=== PATIENT | male | born 1980 | race American Indian/Alaskan Native ===

== ENCOUNTER 2018-11-11 05:27 | Emergency (ER) | payer OTHER ==
[2018-11-11 06:43] LABS: Eosinophils # (Auto) 0.1 K/mm3 (0.0-0.4); Eosinophils % (Auto) 2.2 % (0.0-4.3); Hematocrit 42.7 % (35.5-45.6); Hemoglobin 14.7 gm/dl (11.8-15.2); Lymphocytes # (Auto) 1.7 K/mm3 (1.2-5.4); Lymphocytes % (Auto) 37.8 % (13.4-35.0); Mean Corpuscular HGB Conc 35 % (32-34); Mean Corpuscular Volume 91 fl (84-94); Monocytes # (Auto) 0.4 K/mm3 (0.0-0.8); Monocytes % (Auto) 9.5 % (0.0-7.3); Platelet Count 215 K/mm3 (140-440); Red Blood Count 4.67 M/mm3 (3.65-5.03); Red Cell Distribution Width 13.5 % (13.2-15.2)
--- NOTE | 2018-11-11 07:11 | Emergency Department Report ---
ED General Adult HPI - General Chief complaint: Dizziness Stated complaint: DIZZINESS Time Seen by Provider: 11/11/18 06:54 Source: patient Mode of arrival: Ambulatory Limitations: No Limitations - History of Present Illness Initial comments: 38-year-old male reports a feeling of generalized malaise and vague dizziness for the past week. 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 He states his dizziness is worse when he is up and about. He states it improves when he sits down and rests. He did not pass out. He did not feel like he was going to. He does not report headache. He does not report any focal neurological change. He states he did an Internet search and came up with the diagnosis of hypoglycemia. Does not report a past medical history. He is not taking any routine medications. -: Gradual, week(s) Radiation: other (no complaint of pain) Quality: other Consistency: now resolved Improves with: other (sitting down) Worsens with: other (activity) Associated Symptoms: denies other symptoms Treatments Prior to Arrival: none - Related Data Allergies Allergy/AdvReac Type Severity Reaction Status Date / Time No Known Allergies Allergy Unverified 11/11/18 05:41 ED Review of Systems ROS: Stated complaint: DIZZINESS Other details as noted in HPI Constitutional: malaise. denies: chills, fever Eyes: denies: eye pain, eye discharge, vision change ENT: denies: ear pain, throat pain Respiratory: denies: cough, shortness of breath, wheezing Cardiovascular: other (dizziness). denies: chest pain, palpitations Endocrine: no symptoms reported Gastrointestinal: denies: abdominal pain, nausea, diarrhea Genitourinary: denies: urgency, dysuria Musculoskeletal: denies: back pain, joint swelling, arthralgia Skin: denies: rash, lesions Neurological: denies: headache, weakness, paresthesias Psychiatric: denies: anxiety, depression Hematological/Lymphatic: denies: easy bleeding, easy bruising ED Past Medical Hx - Past Medical History Previous Medical History?: No - Surgical History Past Surgical History?: No - Social History Smoking Status: Never Smoker ED Physical Exam - General Limitations: No Limitations General appearance: alert, in no apparent distress - Head Head exam: Present: atraumatic, normocephalic - Eye Eye exam: Present: normal appearance, PERRL, EOMI. Absent: scleral icterus, nystagmus - ENT ENT exam: Present: mucous membranes moist - Neck Neck exam: Present: normal inspection. Absent: tenderness, meningismus - Respiratory Respiratory exam: Present: normal lung sounds bilaterally. Absent: respiratory distress - Cardiovascular Cardiovascular Exam: Present: regular rate, normal rhythm. Absent: systolic murmur, diastolic murmur, rubs, gallop - GI/Abdominal GI/Abdominal exam: Present: soft, normal bowel sounds. Absent: distended, tenderness, guarding, rebound, rigid - Rectal Rectal exam: Present: deferred - Extremities Exam Extremities exam: Present: normal inspection - Back Exam Back exam: Present: normal inspection - Neurological Exam Neurological exam: Present: alert, oriented X3, CN II-XII intact. Absent: motor sensory deficit - Psychiatric Psychiatric exam: Present: normal affect, normal mood - Skin Skin exam: Present: warm, dry, intact, normal color. Absent: rash ED Course Vital Signs 11/11/18 05:44 Temperature 98.1 F Pulse Rate 66 Respiratory 20 Rate Blood Pressure 136/93 O2 Sat by Pulse 96 Oximetry - Reevaluation(s) Reevaluation #1: Blood pressure was repeated by me in the room. I obtained two hypertensive readings. While was sitting in another standing all about 150/105. Believe the patient does have essential hypertension and that is the likely cause of his symptoms. Follow-up instructions have been explained. He is referred to primary care. 11/11/18 07:10 ED Medical Decision Making - Lab Data Result diagrams: 11/11/18 06:06 11/11/18 06:06 Laboratory Results - last 24 hr 11/11/18 06:06 WBC 4.6 RBC 4.67 Hgb 14.7 Hct 42.7 MCV 91 MCH 32 MCHC 35 H RDW 13.5 Plt Count 215 Lymph % (Auto) 37.8 H [place] % (Auto) 9.5 H Eos % (Auto) 2.2 Baso % (Auto) 1.0 Lymph # 1.7 [place] # 0.4 Eos # 0.1 Baso # 0.0 Seg Neutrophils % 49.5 Seg Neutrophils # 2.3 Laboratory Results - last 24 hr 11/11/18 06:06 WBC 4.6 RBC 4.67 Hgb 14.7 Hct 42.7 MCV 91 MCH 32 MCHC 35 H RDW 13.5 Plt Count 215 Lymph % (Auto) 37.8 H [place] % (Auto) 9.5 H Eos % (Auto) 2.2 Baso % (Auto) 1.0 Lymph # 1.7 [place] # 0.4 Eos # 0.1 Baso # 0.0 Seg Neutrophils % 49.5 Seg Neutrophils # 2.3 Critical care attestation.: If time is entered above; I have spent that time in minutes in the direct care of this critically ill patient, excluding procedure time. ED Disposition Clinical Impression: Essential hypertension, Dizziness Disposition: DC-01 TO HOME OR SELFCARE Is pt being admited?: No Does the pt Need Aspirin: No Condition: Stable Instructions: Hypertension (ED) Additional Instructions: Further evaluation and treatment with a primary care physician is recommended. (Rx 4 year-old blood pressure. Return to the emergency department any acute change or problem. Referrals: LYN ALVAREZ MD [Primary Care Provider] - 3-5 Days
[2018-11-11 07:49] LABS: BUN/Creatinine Ratio 16; Blood Urea Nitrogen 13 mg/dL (9-20); Calcium 9.1 mg/dL (8.4-10.2); Hemolysis Index 10
[2018-11-11 08:26] VITALS: BP 148/82
== END 2018-11-11 08:27 | disposition home or self-care (01) ==
LOC: ED 05:27
DX: I10 Essential (primary) hypertension (principal); R42 Dizziness and giddiness; M79.10 Myalgia, unspecified site; E16.2 Hypoglycemia, unspecified
CPT/HCPCS: 36415; 80048; 85025; 93005; 93010; 99283